=== PATIENT | female | born 1960 ===

== ENCOUNTER 2018-02-25 08:59 | Day surgery (SDC) | payer OTHER ==
[~2018-02-25 08:59] MED LIST: FENOFIBRATE145 MG PO; OMEGA 3 1,0001 EACH PO; OSTERA TABLET1 EACH; SYNTHROID88 MCG PO
== END 2018-02-25 17:40 | disposition home or self-care (01) ==
LOC: AMB-ENDOS 08:59
DX: K57.32 Diverticulitis of large intestine without perforation or abscess without bleeding (principal); K64.1 Second degree hemorrhoids; K64.8 Other hemorrhoids